=== PATIENT | male | born 1955 | race Caucasian/White ===

== ENCOUNTER 2016-09-03 13:30 | Emergency (ER) | payer OTHER ==
[2016-09-03 16:23] LABS: CALCIUM 8.7 mg/dL (8.5-10.1); CARBON DIOXIDE 27.2 mmol/L (21-32); CHLORIDE SERUM 103 mmol/L (98-107); CREATININE SERUM 0.6 mg/dL (0.7-1.3); GFR1 > 60 mL/min; GLUCOSE SERUM 105 mg/dL (74-106); SODIUM SERUM 141 mmol/L (136-145)
[2016-09-03 16:27] LABS: ALBUMIN 3.7 g/dL (3.4-5.0); ALKALINE PHOSPHATASE 91 U/L (46-116); ALT/SGPT 43 U/L (16-63); AST/SGOT 30 U/L (15-37); BILIRUBIN TOTAL 0.68 mg/dL (0.20-1.00); LIPASE 160 IU/L (73-393); TOTAL PROTEIN, SERUM 7.7 g/dL (6.4-8.2)
[2016-09-03 16:46] LABS: BASOPHIL % 0.2 % (0-2); PLATELET COUNT 282 x10^3mcL (130-400); RED CELL DISTRIBUTION WIDTH 15.6 % (11.5-14.5)
[2016-09-03 17:37] VITALS: BP 132/67
== END 2016-09-03 17:37 | disposition home or self-care (01) ==
LOC: ED 13:30
PROVIDERS: Emergency Medicine
DX: K59.00 Constipation, unspecified (principal)
CPT/HCPCS: 36415; J1885

== ENCOUNTER 2016-09-13 20:09 | Inpatient (IN) | payer OTHER ==
[~2016-09-13] VITALS: Ht 172.7 cm; Wt 64.4 kg
[2016-09-13 21:34] LABS: BASOPHIL % 0.5 % (0-2); PLATELET COUNT 396 x10^3mcL (130-400)
[2016-09-13 21:37] LABS: RED CELL DISTRIBUTION WIDTH 14.6 % (11.5-14.5)
[2016-09-13 21:41] LABS: CALCIUM 8.9 mg/dL (8.5-10.1); CARBON DIOXIDE 20.5 mmol/L (21-32); CHLORIDE SERUM 107 mmol/L (98-107); CREATININE SERUM 0.6 mg/dL (0.7-1.3); GFR1 > 60 mL/min; GLUCOSE SERUM 115 mg/dL (74-106); POTASSIUM SERUM 3.7 mmol/L (3.5-5.1); SODIUM SERUM 141 mmol/L (136-145)
[2016-09-13 21:46] LABS: ALBUMIN 3.3 g/dL (3.4-5.0); ALKALINE PHOSPHATASE 92 U/L (46-116); ALT/SGPT 19 U/L (16-63); AST/SGOT 15 U/L (15-37); BILIRUBIN TOTAL 0.45 mg/dL (0.20-1.00); LIPASE 90 IU/L (73-393); TOTAL PROTEIN, SERUM 7.4 g/dL (6.4-8.2)
[2016-09-14 01:37] LABS: MAGNESIUM 2.1 mg/dL (1.8-2.4); PHOSPHOROUS 3.8 mg/dL (2.5-4.9)
[2016-09-14 01:38] LABS: CHOLESTEROL/HDL RATIO 2.8
[2016-09-14 01:47] LABS: FREE T4 1.33 ng/dL (0.76-1.46); FREE THYROXINE INDEX 2.7 ug/dL (1.4-4.5); T4(THYROXINE) 7.9 ug/dL (4.7-13.3)
[2016-09-14 02:15] VITALS: BP 141/80
[2016-09-14 02:26] LABS: T3 TOTAL 0.9 ng/mL
[2016-09-14 05:58] VITALS: BP 115/75
[2016-09-14 06:26] LABS: BASOPHIL % 0.3 % (0-2); PLATELET COUNT 348 x10^3mcL (130-400); RED CELL DISTRIBUTION WIDTH 14.4 % (11.5-14.5)
[2016-09-14 06:43] LABS: CARBON DIOXIDE 20.7 mmol/L (21-32); CHLORIDE SERUM 107 mmol/L (98-107); CREATININE SERUM 0.5 mg/dL (0.7-1.3); GFR1 > 60 mL/min; GLUCOSE SERUM 100 mg/dL (74-106); POTASSIUM SERUM 3.3 mmol/L (3.5-5.1); SODIUM SERUM 137 mmol/L (136-145)
[2016-09-14 06:53] LABS: ALBUMIN 2.8 g/dL (3.4-5.0)
[2016-09-14 09:36] VITALS: BP 127/78
[2016-09-14 10:09] LABS: UA SPECIFIC GRAVITY >=1.030 (1.005-1.035); microscopic required? YES; urine erythrocyte 1+ (NEGATIVE)
[2016-09-14 10:18] LABS: AMPHETAMINE QUAL UR NONE DETECTED (NEG <=1000)
[2016-09-14 13:48] VITALS: BP 128/80
[2016-09-14 17:20] VITALS: BP 130/83
[2016-09-14 20:04] VITALS: BP 132/78
[2016-09-15 05:43] VITALS: BP 129/76
[2016-09-15 06:04] LABS: PLATELET COUNT 391 x10^3mcL (130-400)
[2016-09-15 06:14] LABS: CALCIUM 8.1 mg/dL (8.5-10.1); CARBON DIOXIDE 21.6 mmol/L (21-32); CHLORIDE SERUM 114 mmol/L (98-107); CREATININE SERUM 0.5 mg/dL (0.7-1.3); GFR1 > 60 mL/min; GLUCOSE SERUM 117 mg/dL (74-106); MAGNESIUM 2.3 mg/dL (1.8-2.4); PHOSPHOROUS 3.3 mg/dL (2.5-4.9); POTASSIUM SERUM 3.2 mmol/L (3.5-5.1); SODIUM SERUM 148 mmol/L (136-145)
[2016-09-15 07:53] LABS: RED CELL DISTRIBUTION WIDTH 14.7 % (11.5-14.5)
[2016-09-15 10:15] VITALS: BP 121/79
[2016-09-15 11:45] LABS: BAND NEUTROPHIL 22 % (0-10); BASOPHIL 2 % (0-2); MONOCYTE 19 % (0-7); SEGMENTED NEUTROPHILS 33 % (37-75)
[2016-09-15 11:46] LABS: PLATELET MORPHOLOGY PLATELETS NORMAL; rbc morphology (normal/abnorm) NORMAL (NORMAL)
[2016-09-15 13:35] VITALS: BP 140/84
[2016-09-15 17:21] VITALS: BP 134/88
[2016-09-15 22:26] VITALS: BP 138/89
[2016-09-16 07:08] VITALS: BP 123/78
[2016-09-16 08:06] LABS: PLATELET COUNT 416 x10^3mcL (130-400); RED CELL DISTRIBUTION WIDTH 14.6 % (11.5-14.5)
[2016-09-16 08:12] LABS: CALCIUM 8.2 mg/dL (8.5-10.1); CARBON DIOXIDE 20.7 mmol/L (21-32); CHLORIDE SERUM 116 mmol/L (98-107); CREATININE SERUM 0.6 mg/dL (0.7-1.3); GFR1 > 60 mL/min; GLUCOSE SERUM 133 mg/dL (74-106); MAGNESIUM 2.1 mg/dL (1.8-2.4); PHOSPHOROUS 2.4 mg/dL (2.5-4.9); POTASSIUM SERUM 3.2 mmol/L (3.5-5.1); SODIUM SERUM 149 mmol/L (136-145)
[2016-09-16] MEDS ORDERED: KETOROLAC TR15 MG/M1 IV (09:47)
[2016-09-16] MEDS ORDERED: SEN PO (09:48)
[2016-09-16] MEDS ORDERED: MOR2I IV (09:48)
[2016-09-16] MEDS ORDERED: LAC30L PO (09:48)
[2016-09-16] MEDS ORDERED: TYL325 PO (09:48)
[2016-09-16] MEDS ORDERED: ZOFI IM (09:49)
[2016-09-16 09:52] VITALS: BP 123/78
[2016-09-16 10:02] LABS: ATYPICAL LYMPH 2 %; BAND NEUTROPHIL 20 % (0-10); BASOPHIL 1 % (0-2); MONOCYTE 22 % (0-7); SEGMENTED NEUTROPHILS 39 % (37-75)
[2016-09-16 10:03] LABS: rbc morphology (normal/abnorm) ABNORMAL (NORMAL)
[2016-09-16 10:04] LABS: PLATELET MORPHOLOGY PLATELETS NORMAL
[2016-09-16 10:14] VITALS: BP 119/63
[2016-09-16 10:16] VITALS: BP 129/85
== END 2016-09-16 14:15 | disposition short-term general hospital (02) | DRG 388 ==
LOC: ED 20:09 → DU 09-14 00:48 → MU 09-16 10:18
PROVIDERS: Emergency Medicine; Family Medicine; Internal Medicine Gastroenterology; ADMIT Family Medicine
PROC: 0D7N8ZZ Dilation of Sigmoid Colon, Via Natural or Artificial Opening Endoscopic (ICD-10-PCS; principal; 2016-09-15 08:00)
DX: K56.5 Intestinal adhesions [bands] with obstruction (postinfection) (principal); N17.0 Acute kidney failure with tubular necrosis; E43 Unspecified severe protein-calorie malnutrition; I10 Essential (primary) hypertension; F17.210 Nicotine dependence, cigarettes, uncomplicated; Z68.21 Body mass index [BMI] 21.0-21.9, adult; M62.50 Muscle wasting and atrophy, not elsewhere classified, unspecified site
CPT/HCPCS: 45378; 83880; 84439; J0500; J1200; J1610; J1885; J2250; J2270; J2310; J2405; J3010; J3480; J3490; J7030; Q0092; Q9963

== ENCOUNTER 2017-05-29 16:37 | Emergency (ER) | payer OTHER ==
[~2017-05-29] VITALS: Ht 167.6 cm; Wt 65.8 kg
[~2017-05-29 16:37] MED LIST: KETOROLAC TR15 MG/M1 IV; LAC30L PO; MOR2I IV; SEN PO; TYL325 PO; ZOFI IM
[2017-05-29 16:57] VITALS: Ht 167.6 cm; Wt 65.8 kg
[2017-05-29 18:16] VITALS: BP 130/78
== END 2017-05-29 18:16 | disposition home or self-care (01) ==
LOC: ED 16:37
DX: S61.213A Laceration without foreign body of left middle finger without damage to nail, initial encounter (principal); I10 Essential (primary) hypertension; F17.210 Nicotine dependence, cigarettes, uncomplicated; W01.0XXA Fall on same level from slipping, tripping and stumbling without subsequent striking against object, initial encounter; Y93.89 Activity, other specified; Y92.89 Other specified places as the place of occurrence of the external cause; Y99.8 Other external cause status
CPT/HCPCS: 90715